=== PATIENT | male | born 1985 | race Caucasian/White ===

== ENCOUNTER 2018-01-23 05:41 | Emergency (ER) | payer BC ==
[~2018-01-23] VITALS: Ht 182.9 cm; Wt 91.5 kg
[~2018-01-23 05:41] MED LIST: FOLI1 PO; HYDR-3533 PO; TAB-TAB PO; THIA100T PO
[2018-01-23 05:44] VITALS: BP 162/99; PULSE 87; RESP 16; O2SAT 100
[2018-01-23] MEDS ORDERED: AMOX500T PO (06:16)
[2018-01-23] MEDS ORDERED: IBUP-232 PO (06:18)
--- NOTE | 2018-01-23 06:19 | PD ---
HPI Chief Complaint: Oral / Dental Pain or Problem Time Seen by Provider: 05:50 Travel History International Travel<30 days: No Contact w/Intl Traveler<30days: No Traveled to known affect area: No History of Present Illness HPI The patient is a 32-year-old male that complains of dental pain and tooth #2. He has had this pain for 2 hours. He states when he gets injected so he can go back to sleep. The patient does have a history of alcohol abuse. He has been drinking alcohol tonight. PFSH Past Medical History Cancer: No Cardiovascular Problems: No Diminished Hearing: No Endocrine: No Gastrointestinal Disorders: Yes Genitourinary: No Immune Disorder: No Musculoskeletal: No Neurologic: No Psychiatric: No Reproductive: No Respiratory: No Immunizations Current: Yes Pancreatitis: Yes Influenza Vaccination: No Past Surgical History Oral Surgery: Yes (JAW FX) Tonsillectomy: Yes Other Surgery: Yes Social History Alcohol Use: Yes ("BEER DAILY") Tobacco Use: Yes (/ PPD) Substance Use: Yes (STATED 01/23/18: "I SMOKE MARIJUANA") Allergies-Medications (Allergen,Severity, Reaction): Coded Allergies: No Known Allergies (Unverified Adverse Reaction, Unknown, 01/23/18) Reported Meds & Prescriptions Reported Meds & Active Scripts Active No Active Prescriptions or Reported Medications Review of Systems Except as stated in HPI: all other systems reviewed are Neg Physical Exam Narrative GENERAL: The patient is alert, oriented 3 in moderate to severe distress with his dental pain. He smells strongly of beer. SKIN: Focused skin assessment warm/dry. HEAD: Atraumatic. Normocephalic. EYES: Pupils equal and round. No scleral icterus. No injection or drainage. ENT: No nasal bleeding or discharge. Mucous membranes pink and moist. NECK: Trachea midline. No JVD. CARDIOVASCULAR: Regular rate and rhythm. No murmur appreciated. RESPIRATORY: No accessory muscle use. Clear to auscultation. Breath sounds equal bilaterally. GASTROINTESTINAL: Abdomen soft, non-tender, nondistended. Hepatic and splenic margins not palpable. MUSCULOSKELETAL: No obvious deformities. No clubbing. No cyanosis. No edema. NEUROLOGICAL: Awake and alert. No obvious cranial nerve deficits. Motor grossly within normal limits. Normal speech. PSYCHIATRIC: Appropriate mood and affect; insight and judgment normal. DENTAL: No loose or chipped teeth. No malocclusion. There is exquisite tenderness on tooth #2. No drainable abscesses present. Data Data Last Documented VS Vital Signs Date Time Temp Pulse Resp B/P (MAP) Pulse Ox O2 Delivery O2 Flow Rate FiO2 01/23/18 05:44 87 16 162/99 (120) 100 MDM Medical Decision Making Medical Screen Exam Complete: Yes Emergency Medical Condition: Yes Medical Record Reviewed: Yes Differential Diagnosis Dental abscess with drainable abscess, dental infection with non-drainable abscess, gingivitis, Narrative Course The patient has a dental infection without any drainable abscess. He will be given a amoxicillin 500 mg 3 times daily. He will be given several refills. He will need to follow-up with a dentist. Procedures Procedure Narrative Tooth #2 received a dental block with lidocaine with epinephrine. Gave him complete relief and the patient is very grateful for this. Diagnosis Primary Impression: Dental infection Additional Instructions: As you know, it is necessary to follow-up with a dentist. You are likely to get this toothache again after the antibiotic wears off. The antibiotic may not even work because you need dental treatment. Nevertheless, it is 3 times a day and you have 14 days with 1 refill. [facility] pharmacy will fill this for 3, this is the only pharmacy that we will do this. Med/Other Pt SpecificInfo: Prescription(s) given Scripts Ibuprofen (Ibuprofen) 600 Mg Tab 600 MG PO TID, #30 TAB 0 Refills Prov: Lobo Hernandez MD 01/23/18 Amoxicillin (Amoxicillin) 500 Mg Tab 500 MG PO TID for Infection for 14 Days, TAB 0 Refills Prov: Lobo Hernandez MD 01/23/18 Disposition: 01 DISCHARGE HOME Condition: Stable Lobo Hernandez MD Jan 23, 2018 06:19
[2018-01-23 06:30] VITALS: BP 158/92
== END 2018-01-23 06:38 | disposition home or self-care (01) ==
LOC: PHED 05:41
DX: K04.7 Periapical abscess without sinus (principal); F10.10 Alcohol abuse, uncomplicated; F17.210 Nicotine dependence, cigarettes, uncomplicated; F12.90 Cannabis use, unspecified, uncomplicated
CPT/HCPCS: 64400

== ENCOUNTER 2018-05-15 17:41 | Inpatient (IN) ==
[2018-05-15] MEDS ORDERED: Morphine Inj 4 MG/ML Vial IV.PUSH ONE (18:00)
[2018-05-15] MEDS ORDERED: Ketorolac Inj 30 MG/ML (IVP) Vial IV.PUSH ONE (18:00)
[2018-05-15] MEDS ORDERED: Sod Chloride 0.9% Inj 1,000 ML IV.SIG SCH (18:00)
[2018-05-15 18:52] LABS: Chloride 99 meq/L (98-107); Potassium 4.1 meq/L (3.5-5.1); Sodium 134 meq/L (136-145)
[2018-05-15 18:55] LABS: Calcium 9.4 mg/dL (8.5-10.1)
[2018-05-15 18:56] LABS: Albumin 4.5 g/dL (3.4-5.0); Anion Gap 12 meq/L (5-15); Blood Urea Nitrogen 9 mg/dL (7-18); Glucose,Random 121 mg/dL (74-106)
[2018-05-15 18:58] LABS: Baso % (Auto) 0.2 % (0.0-2.0); Eos % (Auto) 0.2 % (0.0-4.0); Hematocrit 45.5 % (39.0-51.0); Hemoglobin 16.3 gm/dL (13.0-17.0); Lymph # (Auto) 0.8 th/mm3 (1.0-4.8); Lymph % (Auto) 4.9 % (9.0-44.0); Mean Corpuscular HGB Conc 35.8 % (32.0-36.0); Mean Corpuscular Hemoglobin 33.7 pg (27.0-34.0); Mean Corpuscular Volume 94.3 fL (80.0-100.0); Mono % (Auto) 6.2 % (0.0-8.0); Neut # (Auto) 13.9 th/mm3 (1.8-7.7); Neut % (Auto) 88.5 % (16.0-70.0); Platelet Count 295 th/mm3 (150-450); Red Blood Count 4.83 mil/mm3 (4.50-5.90); Red Cell Distribution Width 12.7 % (11.6-17.2); White Blood Count 15.7 th/mm3 (4.0-11.0)
[2018-05-15 18:59] LABS: Alanine Aminotransferase 61 U/L (12-78); Aspartate Aminotransferase 58 U/L (15-37); Glomerular Filtration Rate Greater Than 89 mL/min (>89)
[2018-05-15 19:00] LABS: Total Protein 7.9 g/dL (6.4-8.2)
[2018-05-15 19:01] LABS: Lipase 2147 U/L (73-393)
[2018-05-15 19:02] LABS: Alkaline Phosphatase 102 U/L (45-117)
--- NOTE | 2018-05-15 19:07 | CT ---
EXAM DATE: 05/15/2018 6:24 PM EDT AGE/SEX: 32 years / Male INDICATIONS: Mid abdominal pain. CLINICAL DATA: This is the patient's initial encounter. Patient reports that signs and symptoms have been present for 1 day and indicates a pain score of 8/10. MEDICAL/SURGICAL HISTORY: Pancreatitis. None. ORAL CONTRAST: No oral contrast ingested. RADIATION DOSE: 12.82 CTDI (mGy) COMPARISON: [facility], CT ABDOMEN & PELVIS W CONTRAST, 08/14/2015. . TECHNIQUE: Multiple contiguous axial images were obtained through the abdomen and pelvis following b olus infusion of 95 ml Omnipaque 350 (iohexol) nonionic water-soluble contrast as a single exam dos e. No oral contrast ingested. Using automated exposure control and adjustment of the mA and/or kV ac cording to patient size, radiation dose was kept as low as reasonably achievable to obtain optimal di agnostic quality images. DICOM format image data is available electronically for review and comparis on. FINDINGS: Lower Lungs: The visualized lower lungs are clear. Liver: The liver has a homogeneous hypodensity without space-occupying lesion. There is no dilation o f the biliary tree. No calcified gallstones. Spleen: Diffuse punctate granulomatous calcifications, stable. Pancreas: Diffuse inflammatory change about the pancreas with induration of the peripancreatic fat, mildly improved in appearance to prior CT in August 2015 Kidneys: Normal in size and shape. No evidence of mass or hydronephrosis. Adrenal Glands: Unremarkable. Aorta: The aorta and proximal iliac vessels are grossly unremarkable without aneurysmal dilation. Bowel/Mesentery: No dilated loops of small or large bowel. No evidence of free fluid in the dependen t pelvis. Abdominal Wall: Intact. Retroperitoneum: No evidence of adenopathy in the retrocrural, para-aortic, or deep pelvic regions. Bladder: Contours are smooth. Reproductive Organs: No abnormal masses or calcifications seen. Inguinal: The inguinal region is unremarkable without evidence of adenopathy. Bony Structures: Unremarkable. CONCLUSION: 1. Inflammatory induration about the pancreas, improved when compared to August 2015. 2. No evidence of ascites or free fluid in the dependent pelvis. Electronically signed by: Kevin López MD 05/15/2018 7:06 PM EDT
[2018-05-15 19:48] LABS: Bilirubin,Urine Negative (Negative); Clarity,Urine Clear (Clear); Color,Urine Yellow (Yellw/Straw); Glucose,Urine (UA) Negative (Negative); Leukocyte Esterase,Urine Negative (Negative); Nitrite,Urine Negative (Negative); PH,Urine 6.5 (5.0-8.5); Urobilinogen,Urine 0.2 mg/dL (Less than 2)
[2018-05-15 19:52] LABS: Squamous Epithelial Cell,Urine 0-5 /hpf (0-5); WBC,Urine 0-5 /hpf (0-5)
[2018-05-15] MEDS ORDERED: Bisacodyl 10 MG Supp RECTAL PRN (19:54)
[2018-05-15] MEDS ORDERED: Haloperidol Inj 5 MG/ML Ampul IV.PUSH PRN (19:54)
[2018-05-15] MEDS ORDERED: Acetaminophen 325 MG Tablet PO PRN (19:54)
[2018-05-15] MEDS ORDERED: LORazepam 1 MG Tablet PO PRN (19:54)
--- NOTE | 2018-05-15 20:00 | ED ---
HPI General Chief complaint: Abdominal Pain Stated complaint: abd pain Time Seen by Provider: 05/15/18 17:56 Source: patient Mode of arrival: ambulatory Limitations: no limitations History of Present Illness HPI narrative: Patient is a 32-year-old male with history of pancreatitis, who comes in complaining of abdominal pain. He says it feels like his pancreatitis in the past. He says it started 3-4 days ago and has been getting worse. He tried taking OTC pain medicine without relief. He denies fevers. He has had some nausea and vomiting. He denies chest pain or SOB. He says he has cut back on his alcohol intake and switched from liquor to drinking "4 tallboys a day." He has not had any alcohol in 2 days. Severity is moderate. Related Data Home Medications Medication Instructions Recorded Confirmed [id number] 2 tab PO Q6H PRN 05/15/18 05/15/18 [Excedrin Migraine] Allergies Allergy/AdvReac Type Severity Reaction Status Date / Time No Known Allergies Allergy Verified 05/15/18 17:46 Review of Systems ROS: all other systems reviewed are negative Constitutional Denies chills and Denies fever(s) ENT Denies dizziness Cardiovascular Denies chest pain and Denies dyspnea Respiratory Denies cough Gastrointestinal Reports abdominal pain and Reports nausea Musculoskeletal Denies myalgias and Denies arthralgias Integumentary/Breasts Denies sores and Denies wounds Neurologic Denies focal weakness and Denies numbness [facility] Medical History Medical History Pancreatitis (Acute) Social History Social History Substance History: Active Abuse Second Hand Smoke Exposure: Yes Smoking Status: Current every day smoker Tobacco Type: Cigarettes How Often Do You Have a Drink Containing Alcohol: 4 or more times a week Recent Travel in [facility] within the Last 8 Weeks: No Recent Out of Country Travel within the Last 8 Weeks: No Substance Abuse Detail Marijuana: Substance Use Status: Active Route Used Substance Abuse: Inhalation Substance Frequency: STATES OCCASIONAL USE Immunization History Tetanus Immunization: <5 Years Exam Narrative Exam Narrative: GENERAL: Awake and alert, in no acute distress. Patient is tremulous and has tongue fasciculations. SKIN: Focused skin assessment warm/dry. No wounds or signs of infection. HEAD: Atraumatic. Normocephalic. EYES: Pupils equal and round. No scleral icterus. ENT: Mucous membranes pink and moist. NECK: Trachea midline. No JVD. CARDIOVASCULAR: Regular rate and rhythm. No murmur appreciated. RESPIRATORY: No accessory muscle use. Clear to auscultation. Breath sounds equal bilaterally. GASTROINTESTINAL: Abdomen soft, nondistended. Tender to palpation across the upper abdomen. No rebound or guarding. MUSCULOSKELETAL: No obvious deformities. No clubbing. No cyanosis. No edema. NEUROLOGICAL: Awake and alert. No obvious cranial nerve deficits. Motor grossly within normal limits. Normal speech. PSYCHIATRIC: Appropriate mood and affect; insight and judgment normal. Course Initial Documented Vital Signs Temperature 99.0 F 05/15/18 17:47 Pulse Rate 98 H 05/15/18 17:47 Respiratory Rate 20 05/15/18 17:47 Blood Pressure 179/94 H 05/15/18 17:47 Pulse Oximetry 99 05/15/18 17:47 Last Documented Vital Signs Temperature 99.0 F 05/15/18 17:47 Pulse Rate 76 05/15/18 18:59 Respiratory Rate 16 05/15/18 18:59 Blood Pressure 133/76 05/15/18 18:59 Pulse Oximetry 95 05/15/18 18:59 Medical Decision Making MDM Narrative Medical decision making narrative: Patient is a 32-year-old male who comes in complaining of abdominal pain, which he feels is like his pancreatitis in the past. Exam shows tenderness to palpation of the upper abdomen. IV established , labs sent. Patient is tremulous on exam, there is concern for alcohol withdrawal. Patient given IV fluids, pain medicine, Ativan. Labs show an elevated lipase to 2147. White blood cell count is also elevated to 15. Patient does report feeling better after medications. CT abdomen pelvis performed shows pancreatitis, with inflammation around his pancreas as well as induration. It is reported that this is improved from his previous scan. Based on symptoms and labs, patient will be admitted for pancreatitis. Medical Screen Exam Complete: Yes Emergency Medical Condition: Yes Differential Diagnosis Differential Diagnosis: Pancreatitis versus cholecystitis versus cholelithiasis versus gastritis Medical Records Medical records reviewed: Yes I reviewed the patient's medical records. Lab Data Lab results reviewed: Yes I reviewed the patient's lab results. Result diagrams: 05/15/18 18:37 05/15/18 18:37 Lab Results 05/15/18 05/15/18 05/15/18 Range/Units 18:37 18:37 19:45 CBC w Diff Auto diff final WBC 15.7 H (4.0-11.0) th/mm3 RBC 4.83 (4.50-5.90) mil/mm3 Hgb 16.3 (13.0-17.0) gm/dL Hct 45.5 (39.0-51.0) % MCV 94.3 (80.0-100.0) fL MCH 33.7 (27.0-34.0) pg MCHC 35.8 (32.0-36.0) % RDW 12.7 (11.6-17.2) % Plt Count 295 (150-450) th/mm3 MPV 8.0 (7.0-11.0) fL Neut % (Auto) 88.5 H (16.0-70.0) % Lymph % (Auto) 4.9 L (9.0-44.0) % [place] % (Auto) 6.2 (0.0-8.0) % Eos % (Auto) 0.2 (0.0-4.0) % Baso % (Auto) 0.2 (0.0-2.0) % Neut # (Auto) 13.9 H (1.8-7.7) th/mm3 Lymph # (Auto) 0.8 L (1.0-4.8) th/mm3 [place] # (Auto) 1.0 H (0.0-0.9) th/mm3 Eos # (Auto) 0.0 (0.0-0.4) th/mm3 Baso # (Auto) 0.0 (0.0-0.2) th/mm3 WBC Differential . Differential Comment . Sodium 134 L (136-145) meq/L Potassium 4.1 (3.5-5.1) meq/L Chloride 99 (98-107) meq/L Carbon Dioxide 23.0 (21.0-32.0) meq/L Anion Gap 12 (5-15) meq/L BUN 9 (7-18) mg/dL Creatinine 0.94 (0.60-1.30) mg/dL Estimated GFR Greater than 89 (>89) mL/min Random Glucose 121 H (74-106) mg/dL Calcium 9.4 (8.5-10.1) mg/dL Total Bilirubin 1.0 (0.2-1.0) mg/dL Direct Bilirubin 0.3 H (0.0-0.2) mg/dL Indirect Bilirubin 0.7 (0.0-0.8) mg/dL AST 58 H (15-37) U/L ALT 61 (12-78) U/L Alkaline Phosphatase 102 (45-117) U/L Total Protein 7.9 (6.4-8.2) g/dL Albumin 4.5 (3.4-5.0) g/dL Lipase 2147 H (73-393) U/L Urine Color Yellow (Yellw/Straw) Urine Clarity Clear (Clear) Urine pH 6.5 (5.0-8.5) Ur Specific [place] 1.010 (1.002-1.035) Urine Protein Trace (Neg-Trace) mg/dL Urine Glucose (UA) Negative (Negative) mg/dL Urine Ketones 15 H (Negative) mg/dL Urine Occult Blood Trace (Negative) Urine Nitrate Negative (Negative) Urine Bilirubin Negative (Negative) Urine Urobilinogen 0.2 (Less than 2) mg/dL Ur Leukocyte Esterase Negative (Negative) Urine RBC 4-15 H (0-3) /hpf Urine WBC 0-5 (0-5) /hpf Ur Squamous Epith Cells 0-5 (0-5) /hpf Micro UA Comment Culture not ind Ur Microscopic Review Microscopic reviewed Urine Culture Comments Culture not ind Imaging Data Radiologist's impression: Abdomen/Pelvis CT 05/15/18 18:00 CONCLUSION: 1. Inflammatory induration about the pancreas, improved when compared to August 2015. 2. No evidence of ascites or free fluid in the dependent pelvis. Discharge Plan Discharge Disposition Patient Disposition: 30 Still Patient Discharge Condition Condition: Stable Discharge Details Diagnosis: Pancreatitis Physicians Team ED Provider: Harper Garibay Primary Care Provider: Primary Care Lo Schneider Rxs /Orders / Referrals /Forms Prescriptions: No Action [id number] [Excedrin Migraine] 250-250-65 mg Tablet 2 tab PO Q6H PRN (Reason: Pain) RF: 0 Discharge Interventions Interventions: Vital Signs Last Done: 05/15/18 18:59 Status ED Status: With Doctor
[2018-05-15] MEDS: Sod Chloride 0.9% Inj 1,000 ML IV.CONT SCH (21:56)
[2018-05-16] MEDS: Pantoprazole Inj 40 MG Vial IV.PUSH SCH ×3 (00:04→20:29)
[2018-05-16] MEDS: Senna/Docusate Sodium 8.6/50 MG Tablet PO SCH ×3 (00:05→20:30)
[2018-05-16] MEDS: Morphine Inj 4 MG/ML Vial IV.PUSH PRN ×6 (00:09→20:31)
[2018-05-16 05:55] LABS: Baso % (Auto) 0.1 % (0.0-2.0); Eos # (Auto) 0.1 th/mm3 (0.0-0.4); Eos % (Auto) 0.6 % (0.0-4.0); Hematocrit 40.1 % (39.0-51.0); Hemoglobin 14.1 gm/dL (13.0-17.0); Lymph # (Auto) 0.8 th/mm3 (1.0-4.8); Lymph % (Auto) 6.8 % (9.0-44.0); Mean Corpuscular HGB Conc 35.2 % (32.0-36.0); Mean Corpuscular Hemoglobin 32.9 pg (27.0-34.0); Mean Corpuscular Volume 93.5 fL (80.0-100.0); Mean Platelet Volume 8.3 fL (7.0-11.0); Mono # (Auto) 0.8 th/mm3 (0.0-0.9); Mono % (Auto) 6.8 % (0.0-8.0); Neut # (Auto) 9.9 th/mm3 (1.8-7.7); Neut % (Auto) 85.7 % (16.0-70.0); Platelet Count 239 th/mm3 (150-450); Red Blood Count 4.29 mil/mm3 (4.50-5.90); Red Cell Distribution Width 12.7 % (11.6-17.2); White Blood Count 11.6 th/mm3 (4.0-11.0)
[2018-05-16 06:01] LABS: Chloride 101 meq/L (98-107); Sodium 135 meq/L (136-145)
[2018-05-16 06:05] LABS: Calcium 8.1 mg/dL (8.5-10.1)
[2018-05-16 06:08] LABS: Alanine Aminotransferase 46 U/L (12-78); Albumin 3.8 g/dL (3.4-5.0); Anion Gap 11 meq/L (5-15); Aspartate Aminotransferase 35 U/L (15-37); Blood Urea Nitrogen 7 mg/dL (7-18); Carbon Dioxide 23.4 meq/L (21.0-32.0); Glomerular Filtration Rate Greater Than 89 mL/min (>89); Glucose,Random 115 mg/dL (74-106)
[2018-05-16 06:16] LABS: Alkaline Phosphatase 95 U/L (45-117)
[2018-05-16 06:17] LABS: Lipase 2096 U/L (73-393); Total Protein 7.1 g/dL (6.4-8.2)
[2018-05-16] MEDS: Sod Chloride 0.9% Inj 1,000 ML IV.CONT SCH ×2 (06:40→17:23)
[2018-05-16] MEDS: Multivitamin/Minerals Therapeutic Tablet PO SCH (08:09)
[2018-05-16] MEDS: Folic Acid 1 MG Tablet PO SCH (08:09)
--- NOTE | 2018-05-16 11:01 | P.HP ---
History of Present Illness Primary Care Physician: No Primary Care Physician Chief Complaint: Abdominal pain History of Present Illness: This is a 32-year-old male with a history of alcoholic pancreatitis and lower back pain. He presents to the emergency department because of acute onset of severe epigastric pain worse with food intake associated with nausea and vomiting. He also reports of intermittent hot and cold sensation. No cough, UTI symptoms, diarrhea and shortness of breath. Abdominal CT shows inflammatory induration about the pancreas. Lipase over 1999. States he has cut back on his drinking used to be liquor now drinking beer 4-5 times a week. All other systems reviewed negative Inpatient Certification: I certify that the inpatient services were ordered in accordance with Medicare regulations governing the order. This includes certification that hospital inpatient services are reasonable and necessary and in the case of services not specified as inpatient-only under 42 CFR 419.22(n), that they are appropriately provided as inpatient services in accordance to with the 2-midnight benchmark under 43 CFR 412.3(e) Estimated Total Length of Stay (Days): 2 Plans for Post Hospital Care: Not yet determined Review of Systems All other systems reviewed negative except as stated in HPI PMFSH - History History Provided By: Patient - Medical History Medical History: Medical History (Last Reviewed 05/16/18 @ 10:58 by Arcadio Woodard MD) Pancreatitis - Surgical History Surgical History: Surgical History (Last Updated 05/16/18 @ 10:58 by Arcadio Woodard MD) History of mandibular surgery - Family History Family History: Family History (Last Updated 05/16/18 @ 10:58 by Arcadio Woodard MD) Other No pertinent family history - Tobacco History Second Hand Smoke Exposure: Yes Tobacco Use In Past 30 Days: Yes Smoking Status: Current every day smoker Tobacco Type: Cigarettes, Cigars - Alcohol History How Often Do You Have a Drink Containing Alcohol: 4 or more times a week - Substance Use History Substance History: No History of Abuse - Substance Use Type Marijuana Status: Active Route Used: Inhalation Frequency: STATES OCCASIONAL USE Comment: Patient uses Marijuana for pain - Travel History Recent Travel in the [place] Within the Last 8 Weeks: No Recent Travel Out of the Country Within the Last 8 Weeks: No - Immunization History Tetanus Immunization: <5 Years Medications and Allergies Active Medications: Active Medications Acetaminophen (Tylenol) 650 mg PO Q4H PRN PRN Reason: Temp > 100.4 Al Hydroxide/Mg Hydroxide (Milk Of Magnesia Liq) 30 ml PO Q12H PRN PRN Reason: Mild Constipation Bisacodyl (Dulcolax Supp) 10 mg RECTAL DAILY PRN PRN Reason: SEVERE CONSITIPATION Flumazenil (Romazecon Inj) 0.2 mg IV.PUSH Q1M PRN PRN Reason: OVERSEDATION Folic Acid (Folic Acid) 1 mg PO DAILY [facility] Stop: 05/21/18 08:59 Last Admin: 05/16/18 08:09 Dose: 1 mg Haloperidol Lactate (Haldol Inj) 1 mg IV.PUSH Q15M PRN PRN Reason: for severe agitation Sodium Chloride (Ns Inj) 1,000 mls @ 100 mls/hr IV.CONT .Q10H [facility] Last Admin: 05/16/18 06:40 Dose: 100 mls/hr Lactulose (Lactulose Liq) 30 ml PO DAILY PRN PRN Reason: SEVERE CONSITIPATION Lorazepam (Ativan) 1 mg PO Q4H PRN PRN Reason: for CIWA 8-10 Lorazepam (Ativan) 2 mg PO Q2H PRN PRN Reason: for CIWA 11-14 Lorazepam (Ativan Inj) 2 mg IV.PUSH Q2H PRN PRN Reason: for CIWA 11-14 Lorazepam (Ativan Inj) 2 mg IV.PUSH Q1H PRN PRN Reason: for CIWA 15-20 Lorazepam (Ativan Inj) 2 mg IV.PUSH Q15M PRN PRN Reason: for CIWA > 20 Lorazepam (Ativan Inj) 1 mg IV.PUSH Q4H PRN PRN Reason: for CIWA 8-10 Last Admin: 05/16/18 02:07 Dose: 1 mg Morphine Sulfate (Morphine Inj) 4 mg IV.PUSH Q4H PRN PRN Reason: pain>4 Last Admin: 05/16/18 08:07 Dose: 4 mg Multivitamins/Minerals (Theragran-M) 1 tab PO DAILY [facility] Stop: 05/21/18 08:59 Last Admin: 05/16/18 08:09 Dose: 1 tab Ondansetron HCl (Zofran Inj) 4 mg IV.PUSH Q6H PRN PRN Reason: NAUSEA OR VOMITING Last Admin: 05/16/18 00:02 Dose: 4 mg Pantoprazole Sodium (Protonix Inj) 40 mg IV.PUSH Q12HR [facility] Last Admin: 05/16/18 08:08 Dose: 40 mg Senna/Docusate Sodium (Christen-Colace) 1 tab PO BID [facility] Last Admin: 05/16/18 08:09 Dose: 1 tab Sennosides (Senokot) 17.2 mg PO Q12H PRN PRN Reason: Moderate Constipation Sodium Chloride (Ns Flush) 2 ml IV.FLUSH PRN PRN PRN Reason: FLUSH AFTER USING IV ACCESS Thiamine HCl (Vitamin B1) 100 mg PO DAILY [facility] Last Admin: 05/16/18 08:09 Dose: 100 mg Allergies Allergy/AdvReac Type Severity Reaction Status Date / Time No Known Allergies Allergy Verified 05/15/18 17:46 Home Medications Medication Instructions Recorded Confirmed Type [id number] 2 tab PO Q6H PRN 05/15/18 05/15/18 History [Excedrin Migraine] Exam Vital signs: Vital Signs 05/15/18 17:47 05/15/18 18:59 05/15/18 20:24 Temperature 99.0 F Pulse Rate 98 H 76 78 Respiratory Rate 20 16 15 Blood Pressure 179/94 H 133/76 140/76 Pulse Oximetry 99 95 99 05/15/18 22:40 05/15/18 22:42 05/16/18 04:00 Temperature 97.3 F L 97.8 F Pulse Rate 86 60 65 Respiratory Rate 16 18 18 Blood Pressure 150/84 H 164/92 H 160/95 H Pulse Oximetry 98 100 99 05/16/18 06:00 05/16/18 08:00 05/16/18 09:53 Temperature 98.5 F 97.9 F Pulse Rate 71 58 L Respiratory Rate 18 20 Blood Pressure 156/99 H 161/90 H 149/81 H Pulse Oximetry 97 100 Intake & Output 05/15/18 05/16/18 05/16/18 18:59 06:59 18:59 Intake Total 1999 Output Total 400 / 400 Balance 1600 / 1600 Weight 91.1 kg 92.3 kg Intake: IV 1999 / 1999 NS Inj 1,000 ML @ 100 mls/hr IV 1000 / 1000 .CONT .Q10H [facility] Rx#:[id number] NS Inj 1,000 ML @ Wide Open IV. 1000 / 1000 SIG BOLUS DANILO Rx#:[id number] Output: Urine 400 / 400 Other: Weight On Admission 92.8 kg Narrative: GENERAL: Well-developed, well-nourished in no distress SKIN: Warm and dry. HEAD: Atraumatic. Normocephalic. EYES: Pupils equal and round. No scleral icterus. No injection or drainage. ENT: No nasal bleeding or discharge. Mucous membranes pink and moist. NECK: Trachea midline. No JVD. CARDIOVASCULAR: Regular rate and rhythm. RESPIRATORY: No accessory muscle use. Clear to auscultation. Breath sounds equal bilaterally. GASTROINTESTINAL: Abdomen soft, tender upper abdominal areas, nondistended. MUSCULOSKELETAL: Extremities without clubbing, cyanosis, or edema. No obvious deformities. NEUROLOGICAL: Awake and alert. No obvious cranial nerve deficits. Motor grossly within normal limits. Five out of 5 muscle strength in the arms and legs. Normal speech. No tremors PSYCHIATRIC: Appropriate mood and affect; insight and judgment normal. Results - Labs CBC & Chem 7: 05/16/18 05:23 05/16/18 05:23 Labs: Laboratory Results - last 24 hr 05/15/18 05/15/18 05/15/18 18:37 18:37 19:45 CBC w Diff Auto diff final WBC 15.7 H RBC 4.83 Hgb 16.3 Hct 45.5 MCV 94.3 MCH 33.7 MCHC 35.8 RDW 12.7 Plt Count 295 MPV 8.0 Neut % (Auto) 88.5 H Lymph % (Auto) 4.9 L [place] % (Auto) 6.2 Eos % (Auto) 0.2 Baso % (Auto) 0.2 Neut # (Auto) 13.9 H Lymph # (Auto) 0.8 L [place] # (Auto) 1.0 H Eos # (Auto) 0.0 Baso # (Auto) 0.0 WBC Differential . Differential Comment . Sodium 134 L Potassium 4.1 Chloride 99 Carbon Dioxide 23.0 Anion Gap 12 BUN 9 Creatinine 0.94 Estimated GFR Greater than 89 POC Glucose Random Glucose 121 H Calcium 9.4 Total Bilirubin 1.0 Direct Bilirubin 0.3 H Indirect Bilirubin 0.7 AST 58 H ALT 61 Alkaline Phosphatase 102 Total Protein 7.9 Albumin 4.5 Lipase 2147 H Urine Color Yellow Urine Clarity Clear Urine pH 6.5 Ur Specific [place] 1.010 Urine Protein Trace Urine Glucose (UA) Negative Urine Ketones 15 H Urine Occult Blood Trace Urine Nitrate Negative Urine Bilirubin Negative Urine Urobilinogen 0.2 Ur Leukocyte Esterase Negative Urine RBC 4-15 H Urine WBC 0-5 Ur Squamous Epith Cells 0-5 Micro UA Comment Culture not ind Ur Microscopic Review Microscopic reviewed Urine Culture Comments Culture not ind 05/16/18 05/16/18 05/16/18 03:51 05:23 05:23 CBC w Diff Auto diff final WBC 11.6 H RBC 4.29 L Hgb 14.1 D Hct 40.1 MCV 93.5 MCH 32.9 MCHC 35.2 RDW 12.7 Plt Count 239 MPV 8.3 Neut % (Auto) 85.7 H Lymph % (Auto) 6.8 L [place] % (Auto) 6.8 Eos % (Auto) 0.6 Baso % (Auto) 0.1 Neut # (Auto) 9.9 H Lymph # (Auto) 0.8 L [place] # (Auto) 0.8 Eos # (Auto) 0.1 Baso # (Auto) 0.0 WBC Differential . Differential Comment . Sodium 135 L Potassium 4.0 Chloride 101 Carbon Dioxide 23.4 Anion Gap 11 BUN 7 Creatinine 0.71 Estimated GFR Greater than 89 POC Glucose 139 H Random Glucose 115 H Calcium 8.1 L D Total Bilirubin 1.3 H Direct Bilirubin Indirect Bilirubin AST 35 ALT 46 Alkaline Phosphatase 95 Total Protein 7.1 D Albumin 3.8 D Lipase 2096 H Urine Color Urine Clarity Urine pH Ur Specific [place] Urine Protein Urine Glucose (UA) Urine Ketones Urine Occult Blood Urine Nitrate Urine Bilirubin Urine Urobilinogen Ur Leukocyte Esterase Urine RBC Urine WBC Ur Squamous Epith Cells Micro UA Comment Ur Microscopic Review Urine Culture Comments - Imaging Impressions Abdomen/Pelvis CT 05/15/18 18:00 CONCLUSION: 1. Inflammatory induration about the pancreas, improved when compared to August 2015. 2. No evidence of ascites or free fluid in the dependent pelvis. Caprini VTE Risk Assessment Caprini VTE Risk Assessment: No/Low Risk (score <= 1) Caprini Risk Assessment Model: Point Value = 1 Point Value = 2 Point Value = 3 Point Value = 5 Age 41-60 Minor surgery BMI > 25 kg/m2 Swollen legs Varicose veins or History of unexplained or recurrent spontaneous Oral contraceptives or hormone replacement Sepsis (< 1 month) Serious lung disease, including pneumonia (< 1 month) Abnormal pulmonary function Acute myocardial infarction Congestive heart failure (< 1 month) History of inflammatory bowel disease Medical patient at bed rest Age 61-74 Arthroscopic surgery Major open surgery (> 45 min) Laparoscopic surgery (> 45 min) Malignancy Confined to bed (> 72 hours) Immobilizing plaster cast Central venous access Age >= 75 History of VTE Family history of VTE Factor V Leiden Prothrombin [id number] Lupus anticoagulant Anticardiolipin antibodies Elevated serum homocysteine Heparin-induced thrombocytopenia Other congenital or acquired thrombophilia Stroke (< 1 month) Elective arthroplasty Hip, pelvis, or leg fracture Acute spinal cord injury (< 1 month) Prophylaxis Regimen: Total Risk Factor Score Risk Level Prophylaxis Regimen 0-1 Low Early ambulation 2 Moderate Order ONE of the following: *Sequential Compression Device (SCD) *Heparin 5000 units SQ BID 3-4 Higher Order ONE of the following medications: *Heparin 5000 units SQ TID *Enoxaparin/Lovenox 40 mg SQ daily (WT < 150 kg, CrCl > 30 mL/min) *Enoxaparin/Lovenox 30 mg SQ daily (WT < 150 kg, CrCl > 10-29 mL/min) *Enoxaparin/Lovenox 30 mg SQ BID (WT < 150 kg, CrCl > 30 mL/min) AND/OR *Sequential Compression Device (SCD) 5 or more Highest Order ONE of the following medications: *Heparin 5000 units SQ TID (Preferred with Epidurals) *Enoxaparin/Lovenox 40 mg SQ daily (WT < 150 kg, CrCl > 30 mL/min) *Enoxaparin/Lovenox 30 mg SQ daily (WT < 150 kg, CrCl > 10-29 mL/min) *Enoxaparin/Lovenox 30 mg SQ BID (WT < 150 kg, CrCl > 30 mL/min) AND *Sequential Compression Device (SCD) Assessment and Plan - Plan This is a 32-year-old male with a history of alcoholic pancreatitis and lower back pain. He presents to the emergency department because of acute onset of severe epigastric pain worse with food intake associated with nausea and vomiting. Abdominal CT shows inflammatory induration about the pancreas. Lipase over 1999. Alcoholic pancreatitis. Keep n.p.o., IV hydration and pain management with morphine counseled regarding narcotics. Repeat lipase in the morning. Alcohol abuse. Counseled. [place] protocol Leukocytosis likely secondary to pancreatitis. Monitor Microscopic hematuria. Outpatient follow-up. Low risk for DVT Discharge Planning: Home in 1-2 days
[2018-05-16] MEDS ORDERED: Melatonin 5 MG Tablet PO PRN (21:00)
[2018-05-17] MEDS: Morphine Inj 4 MG/ML Vial IV.PUSH PRN ×3 (00:28→09:19)
[2018-05-17] MEDS: Sod Chloride 0.9% Inj 1,000 ML IV.CONT SCH ×2 (04:20→14:00)
[2018-05-17 06:38] LABS: Baso % (Auto) 0.5 % (0.0-2.0); Eos # (Auto) 0.1 th/mm3 (0.0-0.4); Eos % (Auto) 1.5 % (0.0-4.0); Hematocrit 39.2 % (39.0-51.0); Hemoglobin 13.7 gm/dL (13.0-17.0); Lymph # (Auto) 1.1 th/mm3 (1.0-4.8); Mean Corpuscular Hemoglobin 32.9 pg (27.0-34.0); Mean Corpuscular Volume 94.1 fL (80.0-100.0); Mean Platelet Volume 8.6 fL (7.0-11.0); Neut # (Auto) 7.5 th/mm3 (1.8-7.7); Platelet Count 209 th/mm3 (150-450); Red Blood Count 4.17 mil/mm3 (4.50-5.90); Red Cell Distribution Width 12.9 % (11.6-17.2); White Blood Count 9.7 th/mm3 (4.0-11.0)
[2018-05-17 08:29] VITALS: O2SAT 98
[2018-05-17 08:37] LABS: Alanine Aminotransferase 33 U/L (12-78); Albumin 3.3 g/dL (3.4-5.0); Alkaline Phosphatase 79 U/L (45-117); Anion Gap 12 meq/L (5-15); Aspartate Aminotransferase 22 U/L (15-37); Blood Urea Nitrogen 4 mg/dL (7-18); Carbon Dioxide 24.2 meq/L (21.0-32.0); Chloride 103 meq/L (98-107); Glomerular Filtration Rate Greater Than 89 mL/min (>89); Glucose,Random 128 mg/dL (74-106); Lipase 659 U/L (73-393); Magnesium 1.9 mg/dL (1.5-2.5); Sodium 139 meq/L (136-145); Total Protein 6.8 g/dL (6.4-8.2)
[2018-05-17] MEDS: Pantoprazole Inj 40 MG Vial IV.PUSH SCH (09:18)
[2018-05-17] MEDS: Senna/Docusate Sodium 8.6/50 MG Tablet PO SCH (09:18)
[2018-05-17] MEDS: Folic Acid 1 MG Tablet PO SCH (09:18)
[2018-05-17] MEDS: Multivitamin/Minerals Therapeutic Tablet PO SCH (09:18)
[2018-05-17] MEDS ORDERED: Morphine Inj 4 MG/ML Vial IV.PUSH PRN (11:29)
--- NOTE | 2018-05-17 11:33 | P.PN ---
Subjective Interval history: Follow-up alcoholic pancreatitis. Today he is feeling much better wanting to eat and be discharged home. Denies hallucination low CIWA score Physical Exam Vital signs: Vital Signs 05/16/18 12:00 05/16/18 16:00 05/16/18 18:00 Temperature 97.3 F L 98 F Pulse Rate 61 69 Respiratory Rate 20 20 16 Blood Pressure 154/87 H 145/87 H Pulse Oximetry 99 99 05/16/18 20:00 05/17/18 00:00 05/17/18 04:00 Temperature 99.3 F 100.7 F H 98.4 F Pulse Rate 72 103 H 93 H Respiratory Rate 20 18 18 Blood Pressure 160/91 H 153/94 H 127/86 Pulse Oximetry 97 98 97 05/17/18 08:00 Temperature 97.9 F Pulse Rate 88 Respiratory Rate 16 Blood Pressure 127/86 Pulse Oximetry 98 Intake & Output 05/16/18 05/17/18 05/17/18 18:59 06:59 18:59 Intake Total 1000 / 1000 1000 / 1000 Output Total 500 / 500 1200 / 1200 Balance 500 / 500 -200 / -200 Weight 98 kg Intake: IV 1000 / 1000 1000 / 1000 NS Inj 1,000 ML @ 100 mls/hr IV 1000 / 1000 1000 / 1000 .CONT .Q10H [facility] Rx#:[id number] Oral 0 / 0 Output: Urine 500 / 500 1200 / 1200 Other: # Voids 3 Narrative: GENERAL: Well-developed, well-nourished in no distress SKIN: Warm and dry. CARDIOVASCULAR: Regular rate and rhythm. RESPIRATORY: No accessory muscle use. Clear to auscultation. Breath sounds equal bilaterally. GASTROINTESTINAL: Abdomen soft, nontender, nondistended. MUSCULOSKELETAL: Extremities without clubbing, cyanosis, or edema. No obvious deformities. NEUROLOGICAL: Awake and alert. No obvious cranial nerve deficits. Motor grossly within normal limits. Five out of 5 muscle strength in the arms and legs. Normal speech. No tremors PSYCHIATRIC: Appropriate mood and affect; insight and judgment normal. Results - Labs CBC & Chem 7: 05/17/18 05:47 05/17/18 05:47 Laboratory Results - last 24 hr 05/16/18 05/16/18 05/17/18 11:43 15:57 05:47 CBC w Diff Auto diff final WBC 9.7 RBC 4.17 L Hgb 13.7 Hct 39.2 MCV 94.1 MCH 32.9 MCHC 35.0 RDW 12.9 Plt Count 209 MPV 8.6 Neut % (Auto) 77.0 H Lymph % (Auto) 11.0 [place] % (Auto) 10.0 H Eos % (Auto) 1.5 Baso % (Auto) 0.5 Neut # (Auto) 7.5 Lymph # (Auto) 1.1 [place] # (Auto) 1.0 H Eos # (Auto) 0.1 Baso # (Auto) 0.0 WBC Differential . Differential Comment . Sodium Potassium Chloride Carbon Dioxide Anion Gap BUN Creatinine Estimated GFR POC Glucose 126 H 112 H Random Glucose Calcium Magnesium Total Bilirubin AST ALT Alkaline Phosphatase Total Protein Albumin Lipase 05/17/18 05/17/18 05:47 08:02 CBC w Diff WBC RBC Hgb Hct MCV MCH MCHC RDW Plt Count MPV Neut % (Auto) Lymph % (Auto) [place] % (Auto) Eos % (Auto) Baso % (Auto) Neut # (Auto) Lymph # (Auto) [place] # (Auto) Eos # (Auto) Baso # (Auto) WBC Differential Differential Comment Sodium 139 Potassium 3.0 L D Chloride 103 Carbon Dioxide 24.2 Anion Gap 12 BUN 4 L Creatinine 0.69 Estimated GFR Greater than 89 POC Glucose 102 Random Glucose 128 H Calcium 8.0 L Magnesium 1.9 Total Bilirubin 0.8 AST 22 ALT 33 Alkaline Phosphatase 79 Total Protein 6.8 Albumin 3.3 L Lipase 659 H Assessment and Plan - Plan This is a 32-year-old male with a history of alcoholic pancreatitis and lower back pain. He presents to the emergency department because of acute onset of severe epigastric pain worse with food intake associated with nausea and vomiting. Abdominal CT shows inflammatory induration about the pancreas. Lipase over 1999. Alcoholic pancreatitis. Clinically much improved lipase down to 600. Start clear liquid diet and advance as tolerated. Continue IV hydration and pain management with morphine counseled regarding narcotics. E force queried Alcohol abuse. Counseled. CIWA protocol Leukocytosis likely secondary to pancreatitis. Resolved. Monitor Microscopic hematuria. Outpatient follow-up. Low risk for DVT Discharge Planning: Discharge patient to home if tolerating diet Condition on discharge: Improved Liquid diet for the next 2 days then advance as tolerated Ad Marcela activity no driving Rx written: Lortab and thiamine Follow-up with primary care physician
[2018-05-17 13:01] VITALS: BP 125/79; PULSE 101; RESP 17; TEMP 98
== END 2018-05-17 14:39 | disposition home or self-care (01) ==
LOC: PHED 17:41 → OBSVTOIN 20:01 → INTOOBSV 20:01 → PHEDA 20:01 → PH3 22:43
PROVIDERS: ADMIT Internal Medicine; ATTEND Internal Medicine